=== PATIENT | male | born 1945 | race Caucasian/White ===

== ENCOUNTER → 2025-03-11 09:42 | Outpatient (BNVA) | payer MEDICARE, SELFPAY | PROVIDERS: Visit Provider Nurse Practitioner Family | DX: L72.0 Epidermal cyst (principal); B35.6 Tinea cruris; L84 Corns and callosities; L57.0 Actinic keratosis | CPT/HCPCS: 17000; 99203 ==

== ENCOUNTER → 2025-03-27 12:58 | Outpatient (BNVA) | payer MEDICARE, SELFPAY | PROVIDERS: Visit Provider Dermatology | DX: L72.0 Epidermal cyst (principal); L53.8 Other specified erythematous conditions; R20.8 Other disturbances of skin sensation | CPT/HCPCS: 11402; 11900; 12032 ==

== ENCOUNTER → 2025-04-10 12:45 | Outpatient (BNVA) | payer MEDICARE, SELFPAY | PROVIDERS: Visit Provider Dermatology | DX: L73.2 Hidradenitis suppurativa (principal) | CPT/HCPCS: 11900; 99214 ==